=== PATIENT | female | born 1995 | race Caucasian/White ===

== ENCOUNTER → 2020-01-06 | Outpatient (REF) | payer OTHER ==
[2020-01-06 18:01] LABS: CHLAMYDIA DNA AMPLIFICATION NEGATIVE (NEGATIVE); GC DNA AMPLIFICATION NEGATIVE (NEGATIVE)
== END ==
LOC: M SFHCLERA 13:38
PROVIDERS: ATTEND Nurse Practitioner Family
DX: N30.01 Acute cystitis with hematuria (principal)
CPT/HCPCS: 81002; 81025; 87088; 87186; 87661; G0463

== ENCOUNTER 2021-03-18 12:47 | Emergency (ER) | payer OTHER ==
[~2021-03-18] VITALS: Ht 175.3 cm; Wt 85.0 kg
[2021-03-18] MEDS ORDERED: ZOLO25TA PO (13:08)
[2021-03-18] MEDS ORDERED: ZOLO100T PO (13:08)
[2021-03-18] MEDS ORDERED: TRAZ-252 PO (13:08)
[2021-03-18] MEDS ORDERED: PRED20TA PO (15:23)
[2021-03-18] MEDS ORDERED: predniSONE 20 MG TAB PO ONE (15:25)
[2021-03-18 16:10] VITALS: BP 131/74
== END 2021-03-18 16:20 | disposition home or self-care (01) ==
LOC: M ED 12:47
DX: L30.9 Dermatitis, unspecified (principal); T78.40XA Allergy, unspecified, initial encounter; X58.XXXA Exposure to other specified factors, initial encounter; Y92.89 Other specified places as the place of occurrence of the external cause; F33.9 Major depressive disorder, recurrent, unspecified; F41.9 Anxiety disorder, unspecified; Z91.018 Allergy to other foods; Z79.899 Other long term (current) drug therapy